=== PATIENT | male | born 1940 | race Caucasian/White ===

== ENCOUNTER 2018-12-20 01:02 | Outpatient (CLI) | payer MEDICARE, OTHER, SELFPAY ==
--- NOTE | 2018-12-20 13:30 | DI.CT_ITS ---
SYMPTOM/DIAGNOSIS: CURRENT TOBACCO US, DIRECTOR PRINT F17.210. EVAL FOR PULMONARY NODULES CT CHEST: Low dose CT scan of the chest was performed. Comparison is 02/21/16. There is atherosclerosis of the thoracic aorta but no aneurysmal dilatation is seen. Heart size is within normal limits. No significant pericardial effusion is present. Coronary artery calcifications are identified. No significant thoracic adenopathy, pleural effusion or pneumothorax is identified. Note is made of a small hiatal hernia There are reticular nodular infiltrates seen in the lower lobes bilaterally, left greater than right. No noncalcified pulmonary nodules are seen. The tracheobronchial tree is unremarkable. The upper abdominal images show no acute abnormality. Chronic changes are seen in the spine. Old healed left rib fractures are noted. There is a focal area of sclerosis in the posterior elements of T-2. This is unchanged compared to 2016 and likely reflects a bone island. IMPRESSION: 1. No pulmonary nodules 2. Bilateral basilar reticular nodular infiltrates. Mild infectious or inflammatory pneumonitis should be considered. The findings are nonspecific A follow up CT scan of the chest is recommended to document resolution of the infiltrates. Please correlate with the patient's clinical findings. A follow up examination within six months is recommended to document complete resolution.
== END 2018-12-20 01:22 ==
PROVIDERS: PCP Nurse Practitioner Primary Care; Visit Provider Nurse Practitioner Primary Care
DX: Z12.2 Encounter for screening for malignant neoplasm of respiratory organs (principal); F17.200 Nicotine dependence, unspecified, uncomplicated; R91.8 Other nonspecific abnormal finding of lung field
CPT/HCPCS: 71250